=== PATIENT | male | born 1965 | race Caucasian/White ===

== ENCOUNTER 2018-06-30 10:05 | Outpatient (REF) | payer OTHER, SELFPAY ==
[2018-06-30 19:58] LABS: Anion Gap 9.2 mmol/L (3-11); BUN 16 mg/dL (7-18); CO2 25.8 mmol/L (21.0-32.0); CREATININE 1.05 mg/dL (0.70-1.30); Calcium 9.1 mg/dL (8.5-10.1); Chloride 104 mmol/L (98-107); Cholesterol 158 mg/dL (50-200); Glucose 112 mg/dL (70-100); HDL Cholesterol 54 mg/dL (40-60); LDL CHOLESTEROL 87 mg/dL (<100); Potassium 4.6 mmol/L (3.5-5.1); Sodium 139 mmol/L (136-145); Triglyceride 56 mg/dL (30-150)
== END 2018-06-30 10:25 ==
LOC: NCHCN 10:05
PROVIDERS: PCP Physician Assistant; Visit Provider Physician Assistant Medical
DX: Z00.00 Encounter for general adult medical examination without abnormal findings (principal); Z13.220 Encounter for screening for lipoid disorders; Z13.228 Encounter for screening for other metabolic disorders
CPT/HCPCS: 80048; 80061; 83721

== ENCOUNTER 2019-12-13 19:35 | Outpatient (REF) | payer SELFPAY ==
[2019-12-13 21:59] LABS: ALT 41 U/L (16-63); AST 22 U/L (15-37); Albumin 3.8 g/dL (3.4-5.0); Alkaline Phosphatase 58 U/L (46-116); Anion Gap 7.3 mmol/L (3-11); BUN 21 mg/dL (7-18); Bilirubin, Total 0.5 mg/dL (0.2-1.0); CO2 26.7 mmol/L (21.0-32.0); CREATININE 1.03 mg/dL (0.70-1.30); Calcium 9.1 mg/dL (8.5-10.1); Calculated LDL 89 mg/dL (<100); Chloride 105 mmol/L (98-107); Cholesterol 144 mg/dL (<200); Glucose 111 mg/dL (74-106); HDL Cholesterol 44 mg/dL (40-60); Potassium 4.6 mmol/L (3.5-5.1); Sodium 139 mmol/L (136-145); TSH (W/Ref FT4) 1.25 uIU/mL (0.36-3.74); Total Protein 7.1 g/dL (6.4-8.2); Triglyceride 58 mg/dL (<150)
[2019-12-13 22:00] LABS: Abs Immature Grans 0.01 k/cumm (0.0-0.09); Absolute Basophil Count 0.05 k/cumm (0.0-0.2); Absolute Eosinophil Count 0.32 k/cumm (0.0-0.7); Absolute Lymphocyte Count 1.68 k/cumm (1.2-3.4); Absolute Monocyte Count 1.01 k/cumm (0.11-0.7); Absolute Neutrophil Count 5.36 k/cumm (1.2-6.7); Basophils % 0.6; Eosinophils % 3.8; HCT 45.8 % (40.0-50.0); HGB 15.2 g/dL (13.5-17.5); Immature Grans % 0.1 %; Lymphocytes % 19.9; Mean Corp. HGB Concentration 33.2 g/dL (32.0-36.0); Mean Corpuscular Hemoglobin 29.9 pg (27.0-33.0); Mean Platelet Volume 11.5 fL (8.0-11.0); Neutrophils % 63.6; Platelet Count 240 x1000/uL (130-400); RBC 5.09 m/cumm (4.50-6.00); RBC Distribution Width 13.5 % (11.8-14.1); White Blood Cell Count 8.43 k/cumm (4.4-10.8)
[2019-12-13 22:33] LABS: Uric Acid 7.9 mg/dL (3.5-7.2)
[2019-12-14 14:31] LABS: Hemoglobin A1C 5.8 % (3.8-5.6)
== END 2019-12-13 19:55 ==
LOC: NCHCN 19:35
PROVIDERS: PCP Physician Assistant; Visit Provider Physician Assistant
DX: I10 Essential (primary) hypertension (principal); R73.9 Hyperglycemia, unspecified; M10.9 Gout, unspecified; Z00.00 Encounter for general adult medical examination without abnormal findings
CPT/HCPCS: 80053; 80061; 83036; 84443; 84550; 85025

== ENCOUNTER 2021-03-26 17:00 | Outpatient (REF) | payer SELFPAY ==
[2021-03-26 20:40] LABS: HCT 46.2 % (40.0-50.0); HGB 14.9 g/dL (13.5-17.5); MCH 29.2 pg (27.0-33.0); MCHC 32.3 % (32.0-36.0); MCV 90.6 fL (80-95); MPV 11.1 fL (8.0-11.0); Platelet Count 238 10^3/uL (130-400); RDW-SD 43.4 fL; WBC 11.51 10^3/uL (4.4-10.8)
[2021-03-26 20:45] LABS: Uric Acid 6.2 mg/dL (3.5-7.2)
== END 2021-03-26 17:01 | disposition home or self-care (01) ==
LOC: NCHCN 17:00
PROVIDERS: PCP Physician Assistant; Visit Provider Physician Assistant
DX: M10.9 Gout, unspecified (principal)
CPT/HCPCS: 85027; 84550

== ENCOUNTER 2021-04-11 16:45 | Outpatient (REF) | payer SELFPAY ==
[2021-04-11 19:29] LABS: Abs Immature Grans 0.04 10^3/uL (0.0-0.06); Absolute Basophil Count 0.07 10^3/uL (0.0-0.2); Absolute Lymphocyte Count 2.14 10^3/uL (1.2-3.4); Absolute Monocyte Count 0.73 10^3/uL (0.1-0.8); Absolute Neutrophil Count 5.32 10^3/uL (1.2-6.7); Basophils % 0.8; Eosinophils % 4.6; HCT 44.7 % (40.0-50.0); HGB 14.5 g/dL (13.5-17.5); Immature Grans % 0.5; Lymphocytes % 24.6; MCH 29.9 pg (27.0-33.0); MCHC 32.4 % (32.0-36.0); MCV 92.2 fL (80-95); MPV 11.3 fL (8.0-11.0); Monocytes % 8.4; Neutrophils % 61.1; Nucleated RBC 0 %; Platelet Count 224 10^3/uL (130-400); RBC 4.85 10^6/uL (4.36-5.78); RDW 13.1 % (11.8-14.1); RDW-SD 44.3 fL
[2021-04-11 19:47] LABS: Uric Acid 4.8 mg/dL (3.5-7.2)
== END 2021-04-11 16:46 | disposition home or self-care (01) ==
LOC: NCHCN 16:45
PROVIDERS: PCP Physician Assistant; Visit Provider Physician Assistant
DX: M10.9 Gout, unspecified (principal)
CPT/HCPCS: 84550; 85025

== ENCOUNTER 2022-02-26 17:40 | Outpatient (REF) | payer SELFPAY ==
[2022-02-26 20:33] LABS: Anion Gap 9.3 mmol/L (3-11); BUN 18 mg/dL (7-18); CO2 25.7 mmol/L (21.0-32.0); Chloride 104 mmol/L (98-107); Glucose 95 mg/dL (74-106); Potassium 4.1 mmol/L (3.5-5.1); Sodium 139 mmol/L (136-145)
[2022-02-26 20:41] LABS: Calcium 8.6 mg/dL (8.5-10.1)
== END 2022-02-26 17:41 | disposition home or self-care (01) ==
LOC: NCHCN 17:40
PROVIDERS: PCP Physician Assistant; Visit Provider Physician Assistant
DX: I10 Essential (primary) hypertension (principal)
CPT/HCPCS: 80048

== ENCOUNTER 2022-12-08 16:53 | Outpatient (REF) | payer SELFPAY ==
[2022-12-08 19:27] LABS: ALT 43 U/L (16-63); AST 30 U/L (15-37); Albumin 3.8 g/dL (3.4-5.0); Alkaline Phosphatase 76 U/L (46-116); Anion Gap 7.1 mmol/L (3-11); BUN 21 mg/dL (7-18); Bilirubin, Total 0.4 mg/dL (0.2-1.0); CO2 27.9 mmol/L (21.0-32.0); CREATININE 1.1 mg/dL (0.70-1.30); Calcium 8.8 mg/dL (8.5-10.1); Chloride 104 mmol/L (98-107); Estimated GFR 77.33 (mL/min/1.73m2); Glucose 100 mg/dL (74-106); Potassium 4.2 mmol/L (3.5-5.1); Sodium 139 mmol/L (136-145); Total Protein 7.7 g/dL (6.4-8.2)
[2022-12-08 19:55] LABS: Uric Acid 4.9 mg/dL (3.5-7.2)
== END 2022-12-08 16:54 | disposition home or self-care (01) ==
LOC: NCHCN 16:53
PROVIDERS: PCP Physician Assistant; Visit Provider Physician Assistant
DX: I10 Essential (primary) hypertension (principal); M10.9 Gout, unspecified
CPT/HCPCS: 80053; 84550

== ENCOUNTER 2023-12-09 09:42 | Outpatient (REF) | payer SELFPAY ==
[2023-12-09 19:37] LABS: ALT 45 U/L (16-63); AST 29 U/L (15-37); Albumin 3.7 g/dL (3.4-5.0); Alkaline Phosphatase 71 U/L (46-116); Anion Gap 3.2 mmol/L (3-11); BUN 19 mg/dL (7-18); Bilirubin, Total 0.5 mg/dL (0.2-1.0); CO2 26.8 mmol/L (21.0-32.0); CREATININE 1.1 mg/dL (0.70-1.30); Calcium 8.6 mg/dL (8.5-10.1); Calculated LDL 84 mg/dL (<100); Chloride 106 mmol/L (98-107); Cholesterol 153 mg/dL (<200); Estimated GFR 76.85 (mL/min/1.73m2); Glucose 113 mg/dL (74-106); HDL Cholesterol 56 mg/dL (40-60); Potassium 4.5 mmol/L (3.5-5.1); Sodium 136 mmol/L (136-145); Total Protein 7.4 g/dL (6.4-8.2); Triglyceride 65 mg/dL (<150)
[2023-12-09 19:47] LABS: Uric Acid 7.4 mg/dL (3.5-7.2)
== END 2023-12-09 09:43 | disposition home or self-care (01) ==
LOC: NCHCN 09:42
PROVIDERS: PCP Physician Assistant; Visit Provider Physician Assistant
DX: I10 Essential (primary) hypertension (principal); M10.9 Gout, unspecified
CPT/HCPCS: 80053; 80061; 84550

== ENCOUNTER → 2025-05-31 02:19 | Outpatient (CLI) | payer SELFPAY ==
--- NOTE | 2025-05-31 14:00 | DI.US_ITS ---
APPROVED REPORT Exam: Exercise Treadmill Patient Location: Out-Patient Room/Bed: Stress Nurse: Tamy West RN Ordering Provider:PEARL ZACARIAS, Contact Number: [phone] BMI: 34.29 Baseline Rhythm: Sinus Rhythm Indications: Chest pain, unspecified, Medical History Medical History: Obesity, gout, HTN, prediabetes, GERD Cardiac Medications: Allopurinol, amlodipine, aspirin, indomethacin, nitro Allergies: Bactrim, hornet, lisinopril Cardiac Risk Factors: Family hx, HTN, obesity, prediabetes Previous Cardiac Procedures: None Pretest Chest Pain Characteristics: None Exercise History: Sedentary Physical Disabilities: None Lung Sounds: Clear to auscultation Heart Sounds: Regular Stress Test Details Test: Exercise stress testing was performed using a Ham protocol. Rest Stress HR Resting HR Supine: 79 bpm Max Heart Rate (APMHR): 159 bpm Resting HR Standin bpm Target HR (85% APMHR): 135 bpm Max HR Achieved: 162 bpm % of APMHR: 102 Recovery HR: 99 bpm HR response to stress: Normal HR response to stress BP Resting BP Supine: 160/92 mmHg Resting BP Standin/98 mmHg Max BP: 250/82 mmHg Recovery BP: 176/94 mmHg BP response to stress: Abnormal hypertensive response to stress. ECG Resting ECG: Sinus Rhythm Ectopy: None Stress ECG: Sinus Tachycardia ST Change: No significant ST segment changes noted Recovery ECG: Sinus Rhythm Recovery ST Change: No significant ST segment changes noted Clinical Reason for Termination: 100% HR Achieved Stress Symptoms: Mod SOB Exercise duration: 06 min51 sec Highest Stage Reached: Stage 3: 3.4 mph at 14% grade. Exercise capacity: 8.36 METs Angina Score: None Ho Treadmill Score: 6.3 Rate Pressure Product: [id number] Stress ECG Conclusion 1. Resting electrocardiogram was normal 2. Patient exercised on the Ham protocol completed workload of 8 METS 3. Hypertensive blood pressure response to exercise. The patient achieved greater than 100% of predicted heart rate for age 4. There was no electrocardiographic evidence of myocardial ischemia Ho Treadmill Score is 6.3 which is Low risk. Stress Test Summary STAGE Time (mins) Speed (mph) Grade (%) HR BP SpO2 SYMPTOMS METS Supine 79 160/92 95% Standing 81 166/98 1 3 1.7 10 125 202/90 96% 4.5 2 6 2.5 12 160 7 1 min recovery 129 250/79 95% 3 min recovery 108 250/82 97% 6 min recovery 97 210/88 9 min recovery 99 176/94 Treadmill stopped r/t patient meeting 100% max heart rate. Patient c/o moderate SOB which resolved by test end. Patient left ambulatory in no apparent distress. MPI Conclusion This was a stress echocardiogram. Resting left ventricular function was normal with an ejection fraction of 60%, normal wall motion. Postexercise echocardiogram showed augmented contractility of all segments, EF tania to greater than or equal to 75% There was no echocardiographic evidence of myocardial ischemia
== END ==
PROVIDERS: PCP Physician Assistant; Visit Provider Physician Assistant
DX: R07.9 Chest pain, unspecified (principal); R03.0 Elevated blood-pressure reading, without diagnosis of hypertension
CPT/HCPCS: 93350; 93017